=== PATIENT | female | born 1980 | race Caucasian/White ===

== ENCOUNTER 2017-01-10 21:21 | Emergency (ER) | payer OTHER ==
[2017-01-10 21:49] VITALS: O2SAT 100
[2017-01-10] MEDS ORDERED: Sodium Chloride 0.9% 1,000 ML IV STA (23:15)
[2017-01-10 23:35] LABS: BASO # 0.03 K/mm3 (0.0-2.0); BASO % 0.5 % (0.0-3.0); EOS # 0.2 (0.0-0.7); EOS % 3.4 % (1.5-5.0); GRAN # 2.74 (1.4-6.5); GRAN % 47.1 % (50.0-68.0); HEMATOCRIT 40.1 % (36.0-48.0); LYMPH # 2.3 (1.2-3.4); LYMPH % 40.1 % (22.0-35.0); MEAN CELL VOLUME 86.2 fl (80.0-105.0); MEAN CORPUSCULAR HEMOGLOBIN 30.1 pg (25.0-35.0); MEAN CORPUSCULAR HGB CONC 34.9 g/dl (31.0-37.0); MEAN PLATELET VOLUME 9.8 fl (7.0-11.0); MONO # 0.5 (0.1-0.6); MONO % 8.9 % (1.0-6.0); RED CELL DISTRIBUTION WIDTH 13.3 % (11.5-14.5); WHITE BLOOD COUNT 5.8 10^3/ul (4.5-11.0)
[2017-01-10 23:37] LABS: PH,URINE 6.5 (4.7-8.0); URINE BILIRUBIN NEGATIVE (NEGATIVE); URINE BLOOD NEGATIVE (NEGATIVE); URINE GLUCOSE (UA) NEGATIVE (NEGATIVE); URINE KETONE NEGATIVE (NEGATIVE); URINE LEUKOCYTE ESTERASE NEGATIVE Leu/uL (NEGATIVE); URINE PROTEIN NEGATIVE mg/dL (<30 mg/dL); URINE UROBILINOGEN 0.2 E.U./dL (<1 E.U./dL)
[2017-01-10 23:45] LABS: INR 1.15 (0.93-1.08)
[2017-01-10 23:47] LABS: URINE APPEARANCE CLEAR (CLEAR); URINE COLOR STRAW (YELLOW)
[2017-01-11 00:02] LABS: ALB/GLOB RATIO 1.4 (1.1-1.8); ALKALINE PHOSPHATASE 60 U/L (38-126); ALT/SGPT 32 U/L (7-56); AST/SGOT 30 U/L (14-36); BILIRUBIN,TOTAL 0.7 mg/dL (0.2-1.3); BLOOD UREA NITROGEN 8 mg/dL (7-21); CALCIUM 10.1 mg/dL (8.4-10.5); CARBON DIOXIDE 25 mmol/L (21-33); CHLORIDE 104 mmol/L (98-107); GFR AFRICAN-AMERICAN > 60; GLUCOSE,RANDOM 90 mg/dL (70-110); POTASSIUM 3.2 mmol/L (3.6-5.0); SODIUM 143 mmol/L (132-148); TOTAL PROTEIN 8.3 g/dL (5.8-8.3)
--- NOTE | 2017-01-11 00:03 | ED PDOC ---
Arrival/HPI <Alvaro Caraballo - Last Filed: 01/11/17 01:38> - General Historian: Patient - History of Present Illness Symptom Onset: Gradual Symptom Course: Unchanged <Ingrid Lorenzo - Last Filed: 01/12/17 11:39> - General Chief Complaint: High Blood Pressure Time Seen by Provider: 01/10/17 22:26 - History of Present Illness Narrative History of Present Illness (Text): 36 y/o female w/ pmhx of lupus on plaquenil , presents c/o 1 day of vertiginous dizziness , after 4 days of 4 diarrheal bm's /day but with no abdominal pain nor fever, she also endorses much concern about some HTNsive bp readings she obtianed at home one at 150/100, and the other in the 170's systolic. She state s that her dizziness is mildly associated with nausea but no cp/palpitations/ yannick vomiting/ menorhhagia (indeed pt has been amenorhheic x 3 years due to IUD use. She also denies any malaise/fever/other symptoms of infective foci/ decreased appetite/decresed po intake. Her symptoms of lupus were disocvered when she suffred miscarriages, but otherwise she has no symptoms therefrom. 01/10/17 23:56 (Ingrid Lorenzo) Past Medical History - Provider Review Nursing Documentation Reviewed: Yes - Endocrine/Metabolic Hx Systemic Lupus Erythematosus: Yes - Psychiatric Hx Substance Use: No - Surgical History Hx Section: Yes (x2) - Anesthesia Hx Anesthesia: No Hx Anesthesia Reactions: No Hx Malignant Hyperthermia: No <Ingrid Lorenzo - Last Filed: 01/12/17 11:39> Family/Social History - Physician Review Nursing Documentation Reviewed: Yes Family/Social History: No Known Family HX Smoking Status: Never Smoked Hx Alcohol Use: No Hx Substance Use: No <Ingrid Lorenzo - Last Filed: 01/12/17 11:39> Allergies/Home Meds <Alvaro Caraballo - Last Filed: 01/11/17 01:38> <Ingrid Lorenzo - Last Filed: 01/12/17 11:39> Allergies/Adverse Reactions: Allergies No Known Allergies Allergy (Verified 01/10/17 21:49) Review of Systems - Physician Review All systems were reviewed & negative as marked: Yes - Review of Systems Constitutional: Normal Eyes: Normal ENT: Normal Respiratory: Normal Cardiovascular: Normal Gastrointestinal: Normal Genitourinary Female: Normal Musculoskeletal: Normal Skin: Normal Neurological: Dizziness Endocrine: Normal Hemo/Lymphatic: Normal Psychiatric: Normal <Jeff LorenzoDreaTrevor - Last Filed: 01/12/17 11:39> Physical Exam Vital Signs Reviewed: Yes Temperature: Afebrile Blood Pressure: Normal Pulse: Regular Respiratory Rate: Normal Appearance: Positive for: Well-Appearing, Non-Toxic, Comfortable Pain Distress: None Mental Status: Positive for: Alert and Oriented X 3 - Systems Exam Head: Present: Atraumatic, Normocephalic Pupils: Present: PERRL Extroacular Muscles: Present: EOMI Conjunctiva: Present: Normal Mouth: Present: Moist Mucous Membranes Neck: Present: Normal Range of Motion Respiratory/Chest: Present: Clear to Auscultation, Good Air Exchange. No: Respiratory Distress, Accessory Muscle Use Cardiovascular: Present: Regular Rate and Rhythm, Normal S1, S2. No: Murmurs Abdomen: Present: Normal Bowel Sounds. No: Tenderness, Distention, Peritoneal Signs Back: Present: Normal Inspection Upper Extremity: Present: Normal Inspection. No: Cyanosis, Edema Lower Extremity: Present: Normal Inspection. No: Edema Neurological: Present: GCS=15, CN II-XII Intact, Speech Normal, Motor Func Grossly Intact, Normal Sensory Function, Normal Cerebellar Funct, Norm Deep Tendon Reflexes, Gait Normal, Memory Normal, Normal 2Pt Descrimination Skin: Present: Warm, Dry, Normal Color. No: Rashes Psychiatric: Present: Alert, Oriented x 3, Normal Insight, Normal Concentration <MauraMirthaMauropj - Last Filed: 01/12/17 11:39> Vital Signs Temp Pulse Resp BP Pulse Ox 01/11/17 02:17 98.8 F 74 149/75 01/10/17 23:21 98.8 F 78 17 148/82 100 01/10/17 21:40 97.8 F 95 H 18 144/90 100 01/10/17 21:21 97.9 F 80 19 148/80 100 Medical Decision Making <Alvaro Caraballo - Last Filed: 01/11/17 01:38> <Ingrid Lorenzo - Last Filed: 01/12/17 11:39> ED Course and Treatment: 01/11/17 01:30 Case was endorsed from pending pts. response to treatment with IV fluids.Pt. states she feels much better and wishes to be discharged. (Alvaro Caraballo) pt ws couseled as to the definition of HTN as the average of one's bp and not one elvated bp, here in our eD SHE IS PERHAPS IN STAGE 1 htN. Regarding her dizziness it may be due to dehydration due to diarrhea however she will be risk stratified w/ labs, and given a trial of fluid and meclizine. ekg: nsr @ 82 bpm , no arryhtmogenic intervals nor ischemic st-segment s. If patient labs are wnl, and feels better , will be discharged with [facility] f/u for consideraiton of coememncement of an antiHTNsive regimen, and advised to increase fluid uptake. 01/11/17 00:05 (Ingrid Lorenzo) - Lab Interpretations Lab Results: 01/10/17 21:50 01/10/17 21:50 Lab Results 01/10/17 21:50: Urine Color Straw, Urine Appearance Clear, Urine pH 6.5, Ur Specific [place] 1.010, Urine Protein Negative, Urine Glucose (UA) Negative, Urine Ketones Negative, Urine Blood Negative, Urine Nitrate Negative, Urine Bilirubin Negative, Urine Urobilinogen 0.2, Ur Leukocyte Esterase Negative, Urine HCG, Qual Negative 01/10/17 21:50: PT 12.6 H, INR 1.15 H 01/10/17 21:50: Sodium 143, Potassium 3.2 L, Chloride 104, Carbon Dioxide 25, Anion Gap 17, BUN 8, Creatinine 0.6 L, Est GFR ( Amer) > 60, Est GFR (Non -Af Amer) > 60, Random Glucose 90, Calcium 10.1, Magnesium 2.0, Total Bilirubin 0.7, AST 30, ALT 32, Alkaline Phosphatase 60, Lactate Dehydrogenase 431, Total Creatine Kinase 127, Troponin I < 0.01, Total Protein 8.3, Albumin 4.9 H, Globulin 3.4, Albumin/Globulin Ratio 1.4 01/10/17 21:50: WBC 5.8, RBC 4.65, Hgb 14.0, Hct 40.1, MCV 86.2, MCH 30.1, MCHC 34.9, RDW 13.3, Plt Count 274, MPV 9.8, Gran % 47.1 L, Lymph % (Auto) 40.1 H, [place] % (Auto) 8.9 H, Eos % (Auto) 3.4, Baso % (Auto) 0.5, Gran # 2.74, Lymph # 2.3, [place] # 0.5, Eos # 0.2, Baso # 0.03 - Medication Orders Current Medication Orders: Discontinued Medications Sodium Chloride (Sodium Chloride 0.9%) 1,000 mls @ 999 mls/hr IV .Q1H1M STA Stop: 01/11/17 00:15 Last Admin: 01/10/17 23:29 Dose: 999 mls/hr eMAR Start Stop Document 01/10/17 23:29 AB (Rec: 01/10/17 23:29 AB [id number]) Intravenous Solution Start Date 01/10/17 Start Time 23:29 End Date 01/11/17 End time 00:29 Total Infusion Time 60 Meclizine HCl (Antivert) 25 mg PO STAT STA Stop: 01/10/17 23:17 Last Admin: 01/10/17 23:29 Dose: 25 mg Potassium Chloride (K-Dur 20 Meq Er Tab) 40 meq PO STAT STA Stop: 01/11/17 00:39 Last Admin: 01/11/17 01:28 Dose: 40 meq Disposition/Present on Arrival - Present on Arrival Any Indicators Present on Arrival: No - Disposition Have Diagnosis and Disposition been Completed?: Yes Disposition Time: 01:41 Patient Plan: Discharge <Alvaro Caraballo - Last Filed: 01/11/17 01:38> - Present on Arrival Any Indicators Present on Arrival: No History of DVT/PE: No History of Uncontrolled Diabetes: No Urinary Catheter: No History of Decub. Ulcer: No History Surgical Site Infection Following: None - Disposition Patient Plan: Discharge <Ingrid Lorenzo - Last Filed: 01/12/17 11:39> - Disposition Diagnosis: Dizziness, Hypokalemia Disposition: HOME/ ROUTINE Condition: GOOD Discharge Instructions (ExitCare): Hypokalemia (ED), Dizziness (ED) Additional Instructions: Drink plenty of liquids/take meds as prescribed/follow up with your doctor this week Prescriptions: Meclizine [Meclizine*] 25 mg PO Q6 PRN #16 tab PRN Reason: Dizziness Referrals: Randal Pitt MD [Primary Care Provider] - Follow up with primary Forms: [employer] ([employer])
[2017-01-11 00:12] LABS: TROPONIN I < 0.01 ng/mL
[2017-01-11] MEDS ORDERED: Potassium Chloride 20 mEq ER Tab PO STA (00:38)
[2017-01-11 02:17] VITALS: RESP 17; TEMP 98.8
[2017-01-11 02:18] VITALS: BP 149/75; PULSE 74
--- NOTE | 2017-01-11 16:46 | CARD ---
APPROVED REPORT EKG Measurement Heart [id number] <Conclusion> Normal sinus rhythm Normal ECG
== END 2017-01-11 02:17 | disposition home or self-care (01) ==
LOC: ED 21:21
DX: E87.6 Hypokalemia (principal); R42 Dizziness and giddiness
CPT/HCPCS: 80053; 81003; 82550; 83615; 83735; 84484; 84703; 85025; 85610; 93005; 96360; 99284; J7040